=== PATIENT | male | born 2000 | race Caucasian/White ===

== ENCOUNTER 2018-06-01 07:03 | Day surgery (SDC) | payer BC ==
[2018-06-01] MEDS ORDERED: ONDANSETRON 4 MG INJ IV (10:00)
[2018-06-01] MEDS ORDERED: MIDAZOLAM 1 MG/ML 2 ML INJ IV (10:00)
[2018-06-01] MEDS ORDERED: METOCLOPRAMIDE 10 MG INJ IV (10:00)
[2018-06-01] MEDS ORDERED: DIPHENHYDRAMINE 50 MG INJ IV (10:00)
[2018-06-01] MEDS ORDERED: MEPERIDINE 25 MG INJ IV (10:00)
[2018-06-01] MEDS ORDERED: OXYCODONE/ACETAMINOPHEN (5/325) TAB PO ×2 (10:00)
[2018-06-01] MEDS ORDERED: FENTAnyl 50 MCG/ML VIAL IV ×3 (10:00)
[2018-06-01] MEDS ORDERED: MEPERIDINE /PF (100 MG/2 ML) AMPULE (10:01)
[2018-06-01] MEDS ORDERED: PROPOFOL 20 ML (10:01)
[2018-06-01] MEDS ORDERED: LIDOCAINE 2% (SDV) 5 ML INJ (10:01)
[2018-06-01] MEDS ORDERED: CEFAZOLIN 1 GM INJ (10:23)
[2018-06-01] MEDS: BUPIVACAINE 0.5% (SDV) 30 ML INJ (10:33)
[2018-06-01] MEDS ORDERED: NALOXONE (0.4 MG/ML) INJ (11:08)
[2018-06-01] MEDS ORDERED: IBUPROFEN 800 MG TAB PO (11:30)
== END 2018-06-01 12:38 | disposition home or self-care (01) ==
LOC: SDS 07:03
DX: N47.1 Phimosis (principal)
CPT/HCPCS: 54161; 88304